=== PATIENT | female | born 1980 | race Caucasian/White ===

== ENCOUNTER 2018-12-22 14:28 | Emergency (ER) | payer SELFPAY ==
[~2018-12-22] VITALS: Ht 165.1 cm; Wt 54.5 kg
[~2018-12-22 14:28] MED LIST: ALBUTEROL0.83 MG/ML IH; KETOROLAC10 MG PO; PROVENTIL0.09 MG/A1 IH; ZITHROMAX Z PA250 MG PO
[2018-12-22] MEDS ORDERED: CYCLOBENZ5 MG PO (14:39)
[2018-12-22] MEDS ORDERED: NORCO 325 MG-51 TA1 PO (15:25)
[2018-12-22 15:36] VITALS: BP 114/71
== END 2018-12-22 15:36 | disposition home or self-care (01) ==
LOC: ED 14:28
DX: M54.42 Lumbago with sciatica, left side (principal); F17.210 Nicotine dependence, cigarettes, uncomplicated; Z98.890 Other specified postprocedural states

== ENCOUNTER 2019-02-16 23:00 | Emergency (ER) | payer MEDICAID ==
[~2019-02-16] VITALS: Ht 157.5 cm; Wt 54.5 kg
[2019-02-16 23:00] VITALS: BP 114/72
[~2019-02-16 23:00] MED LIST changes: +CYCLOBENZ5 MG PO; +NORCO 325 MG-51 TA1 PO
[2019-02-16] MEDS ORDERED: MELOXICAM7.5 MG PO (23:17)
[2019-02-16 23:39] LABS: EOS # 0.1 (0.04-0.40); EOS % 0.8 % (1.0-5.0); HEMATOCRIT 39.5 % (37.0-47.0); HEMOGLOBIN 12.6 g/dL (12.5-16.0); MEAN CELL VOLUME 93 fl (78-100); MEAN CORPUSCULAR HEMOGLOBIN 30 pg (27-31); MEAN CORPUSCULAR HGB CONC 32 g/dL (33-37); MEAN PLATELET VOLUME 8.9 fl (7.4-10.4); MONO # 0.8 (0.20-0.80); PLATELET COUNT 410 K/mm3 (130-400); RED BLOOD COUNT 4.26 M/mm3 (4.10-5.30); RED CELL DISTRIBUTION WIDTH 14.9 % (11.5-14.5); WHITE BLOOD COUNT 13.8 K/mm3 (4.8-10.8)
[2019-02-16 23:59] LABS: ALBUMIN 4.2 g/dL (3.5-5.0); CALCIUM 9.6 mg/dL (8.3-10.5); NEU # 10.9 (1.40-6.50); POTASSIUM 3.7 mmol/L (3.5-5.1); TOTAL BILIRUBIN 0.3 mg/dL (0.2-1.2); TOTAL PROTEIN 7.2 g/dL (6.4-8.3)
== END 2019-02-17 02:01 | disposition left against medical advice (07) ==
LOC: ED 23:00
PROVIDERS: Nurse Practitioner
DX: S47.1XXA Crushing injury of right shoulder and upper arm, initial encounter (principal); R20.2 Paresthesia of skin; G89.29 Other chronic pain; F17.210 Nicotine dependence, cigarettes, uncomplicated; Z98.51 Tubal ligation status; Z98.890 Other specified postprocedural states; W20.8XXA Other cause of strike by thrown, projected or falling object, initial encounter

== ENCOUNTER → 2019-04-10 | Outpatient (CLI) | payer MEDICAID ==
[~2019-04-10] VITALS: Ht 162.6 cm; Wt 58.6 kg
[~2019-04-10] MED LIST changes: +ACETAMINOPHEN-H1 TA2 PO; -CYCLOBENZ5 MG PO; +CYCLOBENZAPRINE10 M1 PO; +MELOXICAM7.5 MG PO
[2019-04-10 13:49] LABS: EOS # 0.3 (0.04-0.40); EOS % 3.7 % (1.0-5.0); HEMATOCRIT 38.9 % (37.0-47.0); HEMOGLOBIN 12.7 g/dL (12.5-16.0); LYMPH# 2.8 (1.50-4.00); MEAN CELL VOLUME 93 fl (78-100); MEAN CORPUSCULAR HEMOGLOBIN 30 pg (27-31); MEAN CORPUSCULAR HGB CONC 33 g/dL (33-37); MEAN PLATELET VOLUME 9.1 fl (7.4-10.4); MONO # 0.4 (0.20-0.80); NEU # 3.3 (1.40-6.50); PLATELET COUNT 395 K/mm3 (130-400); RED CELL DISTRIBUTION WIDTH 14.6 % (11.5-14.5); WHITE BLOOD COUNT 6.8 K/mm3 (4.8-10.8)
[2019-04-10 14:01] LABS: ALBUMIN 4.2 g/dL (3.5-5.0); POTASSIUM 4.7 mmol/L (3.5-5.1)
[2019-04-10 14:03] LABS: CALCIUM 9.4 mg/dL (8.3-10.5)
[2019-04-10 14:04] LABS: TOTAL PROTEIN 7.1 g/dL (6.4-8.3)
[2019-04-10 14:06] LABS: TOTAL BILIRUBIN 0.4 mg/dL (0.2-1.2); URINE APPEARANCE HAZY; URINE BILIRUBIN NEGATIVE (NEGATIVE); URINE BLOOD NEGATIVE (NEGATIVE); URINE COLOR YELLOW; URINE GLUCOSE NEGATIVE (NEGATIVE); URINE KETONE NEGATIVE (NEGATIVE); URINE LEUKOCYTE ESTERASE NEGATIVE (NEGATIVE); URINE NITRATE NEGATIVE (NEGATIVE); URINE PROTEIN(semi-quant) TRACE mg/dL (NEGATIVE); URINE UROBILINOGEN NORMAL (NORMAL)
[2019-04-10 14:07] LABS: URINE MUCUS PRESENT (NOT PRESENT)
[2019-04-10 14:15] VITALS: BP 114/73
[2019-04-10 14:17] LABS: PARTIAL THROMBOPLASTIN TIME 25.9 SECONDS (21.0-32.0); PROTHROMBIN TIME 9.7 SECONDS (9.0-12.0)
== END ==
LOC: AMSURD 13:36
PROVIDERS: Physician Assistant
DX: Z01.818 Encounter for other preprocedural examination (principal)

== ENCOUNTER → 2019-09-30 | Outpatient (CLI) | payer MEDICAID ==
[2019-04-10 14:15] VITALS: BP 114/73
== END ==
LOC: RAD 11:29
DX: M54.9 Dorsalgia, unspecified (principal); J01.90 Acute sinusitis, unspecified; H93.8X3 Other specified disorders of ear, bilateral; W19.XXXA Unspecified fall, initial encounter; Z98.890 Other specified postprocedural states

== ENCOUNTER → 2020-02-18 | Outpatient (CLI) | payer MEDICAID ==
[2019-04-10 14:15] VITALS: BP 114/73
== END ==
LOC: MAMMO 14:30
DX: Z12.31 Encounter for screening mammogram for malignant neoplasm of breast (principal)

== ENCOUNTER → 2020-05-10 | Outpatient (CLI) | payer MEDICAID ==
[2019-04-10 14:15] VITALS: BP 114/73
== END ==
LOC: LAB 09:34
DX: Z20.828 Contact with and (suspected) exposure to other viral communicable diseases (principal)

== ENCOUNTER → 2021-01-13 | Outpatient (CLI) | payer MEDICAID ==
[2019-04-10 14:15] VITALS: BP 114/73
== END ==
LOC: RAD 16:06
DX: M54.5 Low back pain (principal); Z98.1 Arthrodesis status; Z98.890 Other specified postprocedural states

== ENCOUNTER → 2021-03-05 | Outpatient (CLI) | payer MEDICAID | LOC: LAB 14:45 | DX: R05 Cough (principal); Z20.822 Contact with and (suspected) exposure to COVID-19 ==

== ENCOUNTER → 2022-12-05 | Outpatient (CLI) | payer MEDICAID ==
[2022-12-05 15:32] LABS: BASO # 0.05 K/mm3 (0.02-0.10); EOS # 0.19 K/mm3 (0.04-0.40); EOS % 2.3 % (1.0-5.0); HEMATOCRIT 38.8 % (37.0-47.0); HEMOGLOBIN 12.3 g/dL (12.5-16.0); LYMPH# 2.73 K/mm3 (1.50-4.00); MEAN CELL VOLUME 86 fl (78-100); MEAN CORPUSCULAR HEMOGLOBIN 27 pg (27-31); MEAN CORPUSCULAR HGB CONC 32 g/dL (33-37); MEAN PLATELET VOLUME 9.3 fl (7.4-10.4); MONO # 0.58 K/mm3 (0.20-0.80); NEU # 4.81 K/mm3 (1.40-6.50); PLATELET COUNT 431 K/mm3 (130-400); RED BLOOD COUNT 4.53 M/mm3 (4.10-5.30); RED CELL DISTRIBUTION WIDTH 15.4 % (11.5-14.5); WHITE BLOOD COUNT 8.4 K/mm3 (4.8-10.8)
[2022-12-05 15:43] LABS: ALBUMIN 4.4 g/dL (3.5-5.0); PARTIAL THROMBOPLASTIN TIME 22.4 SECONDS (21.0-32.0); POTASSIUM 4.1 mmol/L (3.5-5.1); PROTHROMBIN TIME 10.2 SECONDS (9.0-12.0)
[2022-12-05 15:44] LABS: CALCIUM 9.9 mg/dL (8.3-10.5)
[2022-12-05 15:46] LABS: TOTAL PROTEIN 7.1 g/dL (6.4-8.3)
[2022-12-05 15:48] LABS: TOTAL BILIRUBIN 0.2 mg/dL (0.2-1.2)
== END ==
LOC: LAB 14:56
PROVIDERS: Physician Assistant
DX: Z00.00 Encounter for general adult medical examination without abnormal findings (principal); M51.16 Intervertebral disc disorders with radiculopathy, lumbar region; Z13.220 Encounter for screening for lipoid disorders; Z13.29 Encounter for screening for other suspected endocrine disorder; Z13.1 Encounter for screening for diabetes mellitus; Z72.0 Tobacco use